=== PATIENT | male | born 1940 | race Two or more races ===

== ENCOUNTER → 2017-06-16 | Outpatient (CLI) | payer MEDICARE, OTHER ==
[~2017-06-16] MED LIST: ASPIRIN81 M2 PO; FISH OIL; MULTIVITAMIN; Z.0.CARVEDILOL6.25 M PO; Z.0.DIGOXIN125 MCG PO; Z.0.FUROSEMIDE40 MG PO; Z.0.GLIMEPIRIDE1 MG PO; Z.0.LIPITOR20 MG PO; Z.0.PLAVIX75 MG PO; Z.0.SPIRONOLACTONE25 PO; Z.0.TAMSULOSIN HCL0. PO; [UNRECOGNIZED DRUG - OTHER] PO
--- NOTE | 2017-06-16 09:35 | Diagnostic Imaging Report ---
PROCEDURE: X-RAY BARIUM ENEMA WITH AIR CONTRAST COMPARISON: None. INDICATIONS: CONSTIPATION Fluoroscopy time: 1.1 minutes Air kerma: 131.3 mGy TECHNIQUE: It Infrastructure Specialist film was obtained. Barium was introduced via a rectal tube in a retrograde fashion until contrast was noted to reach the cecum. Air was then introduced to fully inflate the colon. Multiple spot images as well as overhead and bilateral decubitus images were obtained. FINDINGS: The prosthetic aide radiograph shows a nonobstructive bowel gas pattern. Regional skeletal structures are intact. No abnormal calcification or organomegaly. Barium enema images showed a short segment of distal descending colon which is persistently narrowed throughout the examination. Otherwise no stricture, filling defect, or mass lesion. CONCLUSION: Short segment narrowing of the distal descending colon is concerning for an annular lesion given the persistence over the entirety of the examination. Direct visualization with colonoscopy is suggested. Dictated by: Wm Samano M.D. on 06/16/2017 at 9:34 Electronically approved by: Wm Samano M.D. on 06/16/2017 at 9:34
== END ==
LOC: DX 08:03
PROVIDERS: ATTEND Internal Medicine Gastroenterology
DX: K59.00 Constipation, unspecified (principal)
CPT/HCPCS: 74280

== ENCOUNTER → 2017-07-08 | Outpatient (CLI) | payer MEDICARE, OTHER ==
[~2017-07-08] MED LIST changes: +DIATRIZOATE MEGL/DIATRIZOA SOD 30 ML BTL PO ONE; +IOPAMIDOL 370 MG/ML 200 ML INFUS..BTL INJ ONE; +SODIUM CHLORIDE 0.9% 250ML 500 ML ONE; +SODIUM CHLORIDE 0.9% 50ML 50 ML ONE
[2017-07-08 16:59] LABS: CREATININE, SERUM 1.29 mg/dL (0.72-1.25)
--- NOTE | 2017-07-08 18:55 | Diagnostic Imaging Report ---
CORRECTION Corrected on: 07/14/2017; Dictated by: Severiano Pelayo D.O. Caution: Report not yet finalized and possibly incomplete! PROCEDURE: CT ABDOMEN AND PELVIS WITH CONTRAST TECHNIQUE: The abdomen and pelvis were scanned utilizing a multidetector helical scanner from the diaphragm to the lesser trochanter after the IV administration of 100 cc of Isovue 370 and the oral administration of Gastroview. Coronal and sagittal multiplanar reformations were obtained. DLP: 365.9 mGy-cm COMPARISON: Abdominal CT 08/28/2016, Barium Enema 06/16/2017 INDICATIONS: ABNORMAL BE FINDINGS: LOWER THORAX: Cardiomegaly with reflux of contrast into the IVC and hepatic veins suggesting right heart dysfunction. Partially visualized AICD lead in the right ventricle and median sternotomy wire. HEPATOBILIARY: No focal hepatic lesions. No biliary ductal dilatation. SPLEEN: No splenomegaly. PANCREAS: No focal masses or ductal dilatation. ADRENALS: No adrenal nodules. KIDNEYS/URETERS: No hydronephrosis, stones, or solid mass lesions. Left inferior pole 1.3 cm cyst. PELVIC ORGANS/BLADDER: Indentation of the prostate base may reflect prior TURP. PERITONEUM / RETROPERITONEUM: No free air. Increased small volume ascites. Some areas of the fluid in the pelvis measure slightly greater than simple fluid density which could reflect a complex fluid. LYMPH NODES: No lymphadenopathy. Increased size of the fluid attenuating lobulated and elongated structure (coronal image 55) anterior to the left psoas muscle which currently measures approximately 8.8 x 3.2 x 4.9 cm (previously 6.4 x 2.7 x 2.7 cm). VESSELS: Moderate scattered atherosclerotic disease including the celiac, superior mesenteric artery, and renal artery ostia. Noncalcified plaques again seen within the infrarenal abdominal aorta. GI TRACT: No distention or wall thickening. Descending colon is relatively underdistended containing a small amount of stool and similar in caliber throughout. No obvious finding to correspond with the narrowing in the distal descending colon on barium enema. 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 Appendicoliths in the distal aspect. No evidence of appendicitis. BONES AND SOFT TISSUES: Degenerative changes of the spine. IMPRESSION: 1. No obvious abnormality to correspond with the distal descending colonic narrowing on barium enema 06/16/2017. Recommend correlation with colon cancer screening. 2. Increased size of the fluid density structure anterior to left psoas muscle which may represent a lymphangioma. 3. 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 4. Increased small volume ascites. Some fluid in the pelvis measures slightly greater density than that of simple fluid which may reflect complex fluid. 5. Cardiomegaly with reflux of contrast into the IVC and hepatic veins suggestive of right heart dysfunction. Dictated by: Jan Gruber M.D. on 07/08/2017 at 18:56 Electronically approved by: Jan Gruber M.D. on 07/08/2017 at 18:56
== END ==
LOC: CT 15:45
PROVIDERS: ATTEND Internal Medicine Gastroenterology
DX: R94.8 Abnormal results of function studies of other organs and systems (principal)
CPT/HCPCS: 36415; 74177; 82565; 84520; J7050; Q9967

== ENCOUNTER → 2017-08-02 | Outpatient (CLI) | payer MEDICARE, OTHER ==
[~2017-08-02] MED LIST changes: -DIATRIZOATE MEGL/DIATRIZOA SOD 30 ML BTL PO ONE; -IOPAMIDOL 370 MG/ML 200 ML INFUS..BTL INJ ONE; -SODIUM CHLORIDE 0.9% 250ML 500 ML ONE; -SODIUM CHLORIDE 0.9% 50ML 50 ML ONE
--- NOTE | 2017-08-02 13:32 | Diagnostic Imaging Report ---
PROCEDURE: Frontal and lateral views of the chest. COMPARISON: Patients [facility], , CHEST 2 VIEWS, 01/07/2007, 11:52. INDICATIONS: COUGH FINDINGS: Lines/tubes: None. The lead left-sided cardiac pacemaker. Lungs: The lungs are mildly hyperinflated with increased AP diameter of the thorax.. There is no evidence of pneumonia or pulmonary edema. Pleura: There is no pleural effusion or pneumothorax. Heart and mediastinum: The cardiac silhouette is moderately enlarged. Mild prominence of the aortic arch with calcifications. Median sternotomy wires. Bones: No acute bony abnormality. IMPRESSION: 1. Cardiomegaly without acute decompensation. 2. Bilateral hyperinflation may represent mild COPD. Jordan Kamara M.D. Dictated by: Jordan Kamara M.D. on 08/02/2017 at 13:33 Electronically approved by: Jordan Kamara M.D. on 08/02/2017 at 13:33
== END ==
LOC: RAD 12:26
DX: R05 Cough (principal)
CPT/HCPCS: 71046

== ENCOUNTER → 2018-07-21 | Outpatient (CLI) | payer MEDICARE, OTHER ==
--- NOTE | 2018-07-21 15:50 | Diagnostic Imaging Report ---
Exam: Left hip 2 views History: Pain Comparison: None. Findings: No fracture or malalignment. Mild degenerative arthrosis of the left hip. No abnormal soft tissue calcification or soft tissue defect. Impression: No acute osseous abnormality Mild degenerative arthrosis of the left hip. Signed by: Dr. Anuj Griggs M.D. on 07/21/2018 3:47 PM
--- NOTE | 2018-07-21 15:52 | Diagnostic Imaging Report ---
EXAMINATION: RIBS UNILAT W/CXR INDICATION: Left rib pain. COMPARISON: None FINDINGS: TUBES and LINES: Left-sided AICD with leads overlying the right atrium and right ventricle. LUNGS: Lungs are well inflated. There is no evidence of pneumonia or pulmonary edema. PLEURA: No pleural effusion or pneumothorax. HEART AND MEDIASTINUM: The cardiomediastinal silhouette is moderately enlarged. Status post CABG. BONES AND SOFT TISSUES: No acute osseous abnormality. No evidence of displaced rib fracture on dedicated views. Status post median sternotomy. UPPER ABDOMEN: No free air under the diaphragm. IMPRESSION: No evidence of displaced rib fracture. Moderate cardiomegaly without pulmonary edema. Signed by: Dr. Andre Corea MD on 07/21/2018 3:49 PM
== END ==
LOC: RAD 14:06
DX: R07.81 Pleurodynia (principal); R07.89 Other chest pain; M25.552 Pain in left hip
CPT/HCPCS: 71101

== ENCOUNTER 2022-06-18 12:04 | Emergency (ER) | payer MEDICARE, OTHER ==
[~2022-06-18] VITALS: Ht 160 cm; Wt 65.8 kg
[2022-06-18] MEDS ORDERED: NAPROXEN250 MG PO (14:00)
== END 2022-06-18 14:25 | disposition home or self-care (01) ==
LOC: ER 12:16
DX: M25.512 Pain in left shoulder (principal); M54.2 Cervicalgia; I10 Essential (primary) hypertension; E11.9 Type 2 diabetes mellitus without complications; I50.9 Heart failure, unspecified; I48.91 Unspecified atrial fibrillation; I25.10 Atherosclerotic heart disease of native coronary artery without angina pectoris; E78.5 Hyperlipidemia, unspecified; K21.9 Gastro-esophageal reflux disease without esophagitis; Z95.1 Presence of aortocoronary bypass graft
CPT/HCPCS: 70450; 72125; 99283

== ENCOUNTER 2022-06-30 10:53 | Emergency (ER) | payer MEDICARE, OTHER ==
[~2022-06-30] VITALS: Ht 160 cm; Wt 65.8 kg
[~2022-06-30 10:53] MED LIST changes: +NAPROXEN250 MG PO
[2022-06-30] MEDS ORDERED: NAPROSYN500 MG PO (11:31)
== END 2022-06-30 11:47 | disposition home or self-care (01) ==
LOC: ER 11:00
DX: M25.512 Pain in left shoulder (principal); W18.39XA Other fall on same level, initial encounter; Y92.89 Other specified places as the place of occurrence of the external cause; I10 Essential (primary) hypertension; E11.9 Type 2 diabetes mellitus without complications; I50.9 Heart failure, unspecified; E78.5 Hyperlipidemia, unspecified; I48.91 Unspecified atrial fibrillation; K21.9 Gastro-esophageal reflux disease without esophagitis; I25.2 Old myocardial infarction; Z95.1 Presence of aortocoronary bypass graft
CPT/HCPCS: 99282

== ENCOUNTER 2022-08-25 12:13 | Emergency (ER) | payer MEDICARE, OTHER ==
[~2022-08-25] VITALS: Ht 160 cm; Wt 56.7 kg
[~2022-08-25 12:13] MED LIST changes: +NAPROSYN500 MG PO
[2022-08-25 12:30] VITALS: O2SAT 97
[2022-08-25] MEDS ORDERED: BACLOFEN10 MG PO (14:21)
== END 2022-08-25 14:45 | disposition home or self-care (01) ==
LOC: FSED 12:18
DX: S29.012A Strain of muscle and tendon of back wall of thorax, initial encounter (principal); R07.89 Other chest pain; I10 Essential (primary) hypertension; E11.9 Type 2 diabetes mellitus without complications; I50.9 Heart failure, unspecified; I48.91 Unspecified atrial fibrillation; I25.10 Atherosclerotic heart disease of native coronary artery without angina pectoris; E78.5 Hyperlipidemia, unspecified; K21.9 Gastro-esophageal reflux disease without esophagitis; I25.2 Old myocardial infarction
CPT/HCPCS: 71101; 72070; 99283

== ENCOUNTER 2022-08-30 14:33 | Emergency (ER) | payer MEDICARE, OTHER ==
[~2022-08-30] VITALS: Ht 160 cm; Wt 56.7 kg
[~2022-08-30 14:33] MED LIST changes: +BACLOFEN10 MG PO
[2022-08-30 15:40] VITALS: O2SAT 99
[2022-08-30] MEDS ORDERED: LIDOCAINE 4% PATCH TP STA (16:14)
[2022-08-30] MEDS ORDERED: ACETAMINOPHEN 325 MG TAB PO ONE (16:15)
== END 2022-08-30 16:30 | disposition home or self-care (01) ==
LOC: ER 15:28
DX: M94.0 Chondrocostal junction syndrome [Tietze] (principal); I10 Essential (primary) hypertension; E11.9 Type 2 diabetes mellitus without complications; I50.9 Heart failure, unspecified; I48.91 Unspecified atrial fibrillation; E78.5 Hyperlipidemia, unspecified; I25.10 Atherosclerotic heart disease of native coronary artery without angina pectoris; K21.9 Gastro-esophageal reflux disease without esophagitis; Z95.1 Presence of aortocoronary bypass graft
CPT/HCPCS: 99282

== ENCOUNTER 2022-09-18 13:37 | Observation (INO) | payer MEDICARE, OTHER ==
[~2022-09-18] VITALS: Ht 160 cm; Wt 56.7 kg
[2022-09-18 14:39] LABS: BASOPHILS # (AUTO) 0.1 (0.0-0.1); BASOPHILS % 1.1 % (0.0-1.0); EOSINOPHILS # (AUTO) 0.4 (0.0-0.4); EOSINOPHILS % 6.1 % (0.0-6.0); HEMATOCRIT 34.8 % (38.2-49.6); HEMOGLOBIN 11.7 g/dL (14.0-18.0); LYMPHOCYTES % 28.3 % (18.0-39.1); MEAN CORPUSCULAR HEMOGLOBIN 31.8 pg (28-32); MEAN CORPUSCULAR HGB CONC 33.6 g/dL (31-35); MEAN CORPUSCULAR VOLUME 94.6 fL (81-99); MONOCYTES # (AUTO) 0.7 (0.2-0.8); MONOCYTES % 9.4 % (4.4-11.3); NEUTROPHILS # (AUTO) 3.9 (2.1-6.9); NEUTROPHILS % 54.5 % (38.7-80.0); PLATELET COUNT 160 x10e3/uL (140-360); RED BLOOD COUNT 3.68 x10e6/uL (4.3-5.7); RED CELL DISTRIBUTION WIDTH 13.3 % (11.7-14.4)
[2022-09-18 14:51] LABS: ANION GAP 14.9 mmol/L (8-16); CALCIUM 9.7 mg/dL (8.4-10.2); CREATININE, SERUM 1.59 mg/dL (0.72-1.25); POTASSIUM 3.9 mmol/L (3.5-5.1)
[2022-09-18 15:07] LABS: CLARITY,URINE SL CLOUDY (CLEAR); COLOR,URINE YELLOW (YELLOW); KETONES,URINE TRACE (NEGATIVE); LEUKOCYTE ESTERASE ,URINE TRACE (NEGATIVE); NITRITE,URINE NEGATIVE (NEGATIVE); PROTEIN,URINE DIPSTICK 1+ (NEGATIVE); URINE UROBILINOGEN 0.2 mg/dL (0.2 - 1)
[2022-09-18 15:20] LABS: BACTERIA,URINE FEW /HPF; EPITHELIAL CELLS,URINE FEW /LPF; RBC,URINE 0-5 /HPF (0-5)
[2022-09-18] MEDS ORDERED: DEXTROSE 50% SYRINGE 50 ML IV PRN (17:15)
[2022-09-18] MEDS: INSULIN LISPRO 100 UNIT/1 ML 3ML VIAL SQ SCH (22:44)
[2022-09-18] MEDS ORDERED: Morphine 2mg Syringe 2 MG/ML SYR IV PRN (23:00)
[2022-09-19 08:12] VITALS: BP 124/61; PULSE 69; RESP 18; TEMP 98.6; O2SAT 100
[2022-09-19 08:40] VITALS: BP 124/61; PULSE 69; RESP 18; TEMP 98.6; O2SAT 100
[2022-09-19] MEDS ORDERED: FUROSEMIDE 40 MG TAB PO SCH (09:00)
[2022-09-19] MEDS ORDERED: SPIRONOLACTONE 25 MG TAB PO SCH (09:00)
[2022-09-19] MEDS ORDERED: GABAPENTIN 300 MG CAP PO SCH (09:00)
[2022-09-19] MEDS ORDERED: FINASTERIDE 5 MG TAB PO SCH (09:00)
[2022-09-19] MEDS ORDERED: POLYETHYLENE GLYCOL 3350 17 GM PACK PO SCH (09:00)
[2022-09-19] MEDS ORDERED: PANTOPRAZOLE SOD 40 MG TABEC PO SCH (09:00)
[2022-09-19] MEDS ORDERED: TAMSULOSIN HCL 0.4 MG CAP PO SCH (09:00)
[2022-09-19] MEDS ORDERED: CARVEDILOL 3.125 MG TAB PO SCH (09:00)
[2022-09-19] MEDS ORDERED: SODIUM CHLORIDE 0.9% 250ML 250 ML ONE (09:03)
[2022-09-19] MEDS: INSULIN LISPRO 100 UNIT/1 ML 3ML VIAL SQ SCH ×2 (09:14→12:00)
[2022-09-19 09:40] VITALS: BP 124/61; PULSE 69; RESP 18; TEMP 98.6; O2SAT 100
[2022-09-19 10:31] LABS: BASOPHILS # (AUTO) 0.1 (0.0-0.1); EOSINOPHILS # (AUTO) 0.4 (0.0-0.4); EOSINOPHILS % 5.5 % (0.0-6.0); HEMOGLOBIN 11.7 g/dL (14.0-18.0); LYMPHOCYTES # (AUTO) 1.6 (1.0-3.2); LYMPHOCYTES % 21.1 % (18.0-39.1); MEAN CORPUSCULAR HEMOGLOBIN 31.5 pg (28-32); MEAN CORPUSCULAR HGB CONC 32.5 g/dL (31-35); MEAN CORPUSCULAR VOLUME 96.8 fL (81-99); MONOCYTES # (AUTO) 0.6 (0.2-0.8); MONOCYTES % 7.5 % (4.4-11.3); NEUTROPHILS # (AUTO) 4.9 (2.1-6.9); NEUTROPHILS % 64.4 % (38.7-80.0); PLATELET COUNT 148 x10e3/uL (140-360); RED BLOOD COUNT 3.72 x10e6/uL (4.3-5.7); RED CELL DISTRIBUTION WIDTH 13.5 % (11.7-14.4)
[2022-09-19 10:54] LABS: ANION GAP 13.5 mmol/L (8-16); CALCIUM 9.8 mg/dL (8.4-10.2); CREATININE, SERUM 1.37 mg/dL (0.72-1.25); POTASSIUM 4.5 mmol/L (3.5-5.1)
[2022-09-19 12:20] VITALS: BP 118/58; PULSE 63; RESP 20; TEMP 97.9; O2SAT 100
[2022-09-19] MEDS ORDERED: FINASTERIDE5 MG PO (12:58)
[2022-09-19] MEDS ORDERED: GABAPENTIN300 MG PO (12:58)
[2022-09-19] MEDS ORDERED: MACROBID 100 M100 MG PO (12:58)
[2022-09-19] MEDS ORDERED: HYDROCODON-ACE1 EA11 PO (12:58)
[2022-09-19 15:41] VITALS: BP 130/84; PULSE 60; RESP 20; TEMP 98.1; O2SAT 100
[2022-09-19] MEDS ORDERED: ATORVASTATIN 40 MG TAB PO SCH (21:00)
== END 2022-09-19 16:12 | disposition home or self-care (01) ==
LOC: ER 13:47 → ERHOLD 17:12 → MED/SURG 09-19 07:45
PROVIDERS: ADMIT Internal Medicine; ATTEND Internal Medicine
DX: N39.0 Urinary tract infection, site not specified (principal); R10.31 Right lower quadrant pain; K40.90 Unilateral inguinal hernia, without obstruction or gangrene, not specified as recurrent; I25.10 Atherosclerotic heart disease of native coronary artery without angina pectoris; Z95.1 Presence of aortocoronary bypass graft; J96.11 Chronic respiratory failure with hypoxia; I13.0 Hypertensive heart and chronic kidney disease with heart failure and stage 1 through stage 4 chronic kidney disease, or unspecified chronic kidney disease; E11.22 Type 2 diabetes mellitus with diabetic chronic kidney disease; N18.4 Chronic kidney disease, stage 4 (severe); I50.9 Heart failure, unspecified; N40.0 Benign prostatic hyperplasia without lower urinary tract symptoms; K59.00 Constipation, unspecified; K21.9 Gastro-esophageal reflux disease without esophagitis; Z95.810 Presence of automatic (implantable) cardiac defibrillator; E78.5 Hyperlipidemia, unspecified; I48.91 Unspecified atrial fibrillation; L40.9 Psoriasis, unspecified; M40.209 Unspecified kyphosis, site unspecified; Z79.4 Long term (current) use of insulin
CPT/HCPCS: 0223U; 36415 ×2; 74176; 80048 ×2; 81001; 82948 ×2; 85025 ×2; 87086; 94760; 99285; G0378 ×2; J0696 ×2; J7050; S0164

== ENCOUNTER → 2022-09-22 | Outpatient (CLI) | payer MEDICARE, OTHER ==
[~2022-09-22] MED LIST changes: +FINASTERIDE5 MG PO; +GABAPENTIN300 MG PO; +HYDROCODON-ACE1 EA11 PO; +MACROBID 100 M100 MG PO
== END ==
LOC: RAD 12:19
PROVIDERS: ATTEND Internal Medicine
DX: R06.02 Shortness of breath (principal)
CPT/HCPCS: 71046

== ENCOUNTER 2024-08-28 16:53 | Inpatient (IN) | payer MEDICARE ==
[~2024-08-28] VITALS: Ht 162.6 cm; Wt 64.4 kg
[2024-08-28] VITALS (16 sets, daily range): BP systolic 81–98; BP diastolic 54–72; PULSE 113–119; RESP 7–16; TEMP 97.6–98.2; O2SAT 93–100
[~2024-08-28 16:53] MED LIST changes: +AMIODARONE HCL200 MG PO; +ASPIRIN81 MG PO; +CLOTRIMAZOLE30 ML EACH EAR; +CORTISPORIN-TC10 M1 LEFT EAR; +DIFLUCAN100 MG PO; -FISH OIL; +FISH OIL PO; +HUMULIN N100 UNITS/ SC; +LASIX20 MG PO; +LEVEMIR100 UNIT/1 SC; +LEVOCETIRIZINE D5 MG PO; +MECLIZINE HCL12.5 MG PO; +METOLAZONE5 MG PO; +MIRALAX17 GM PO; +MYRBETRIQ25 MG PO; +PANTOPRAZOLE SO40 MG PO; +TOPICORT100 ML TOP
[2024-08-28] MEDS: SODIUM CHLORIDE 0.9% 1000ML 1,000 ML IV STA (17:37)
[2024-08-28 17:40] LABS: BASOPHILS # (AUTO) 0.1 (0.0-0.1); BASOPHILS % 0.8 % (0.0-1.0); EOSINOPHILS # (AUTO) 0.3 (0.0-0.4); EOSINOPHILS % 3.4 % (0.0-6.0); HEMATOCRIT 34.1 % (38.2-49.6); HEMOGLOBIN 11.3 g/dL (14.0-18.0); LYMPHOCYTES # (AUTO) 1.3 (1.0-3.2); LYMPHOCYTES % 18.2 % (18.0-39.1); MEAN CORPUSCULAR HEMOGLOBIN 31.9 pg (28-32); MEAN CORPUSCULAR HGB CONC 33.1 g/dL (31-35); MEAN CORPUSCULAR VOLUME 96.3 fL (81-99); MONOCYTES # (AUTO) 0.8 (0.2-0.8); MONOCYTES % 10.8 % (4.4-11.3); NEUTROPHILS # (AUTO) 4.8 (2.1-6.9); NEUTROPHILS % 66.3 % (38.7-80.0); PLATELET COUNT 181 x10e3/uL (140-360); RED BLOOD COUNT 3.54 x10e6/uL (4.3-5.7); RED CELL DISTRIBUTION WIDTH 18.5 % (11.7-14.4)
[2024-08-28] MEDS: ACETAMINOPHEN 325 MG TAB PO STA (17:45)
[2024-08-28] MEDS ORDERED: Morphine 4mg INJECTION 4 MG/ML INJ IV PRN (17:45)
[2024-08-28] MEDS ORDERED: ONDANSETRON HCL INJ 2MG/ML 2ML 2 MG/ML VIAL IV PRN (17:45)
[2024-08-28] MEDS: ONDANSETRON HCL INJ 2MG/ML 2ML 2 MG/ML VIAL IV STA (17:50)
[2024-08-28] MEDS: Morphine 4mg INJECTION 4 MG/ML INJ IV STA (17:50)
[2024-08-28 17:55] LABS: ALBUMIN 3.1 g/dL (3.5-5.0); ALBUMIN/GLOBULIN RATIO 0.8 (0.8-2.0); ANION GAP 19.5 mmol/L (8-16); BILIRUBIN,TOTAL 3.5 mg/dL (0.2-1.2); CALCIUM 8.7 mg/dL (8.4-10.2); CREATININE, SERUM 2.5 mg/dL (0.72-1.25); TOTAL PROTEIN 7.2 g/dL (6.5-8.1)
[2024-08-28 17:59] LABS: POTASSIUM 5.5 mmol/L (3.5-5.1)
[2024-08-28 18:03] LABS: TROPONIN I 2.091 ng/mL (0-0.300)
[2024-08-28] MEDS: ALBUTEROL SULF 0.083% NEB SOLN 3 ML NEB NEB STA (18:03)
[2024-08-28] MEDS: SODIUM CHLORIDE 0.9% 1000ML 1,000 ML IV SCH (18:30)
[2024-08-28] MEDS: SODIUM BICARBONATE 8.4% INJ 50 ML SYR IV STA (18:31)
[2024-08-28] MEDS: DEXTROSE 50% SYRINGE 50 ML IV ONE (18:32)
[2024-08-28] MEDS: CALCIUM GLUC 1 G/50 ML NACL 50 ML IV ONE (18:32)
[2024-08-28] MEDS: INSULIN REGULAR, HUMAN 100 UNIT/1 ML IV ONE (18:34)
[2024-08-28] MEDS ORDERED: DEXTROSE 50% SYRINGE 50 ML IV PRN (19:00)
[2024-08-28] MEDS ORDERED: ALBUTEROL SULF 0.083% NEB SOLN 3 ML NEB NEB PRN (19:00)
[2024-08-28] MEDS ORDERED: HYDRALAZINE HCL 20 MG/ML VIAL IV PRN (19:00)
[2024-08-28] MEDS ORDERED: ACETAMINOPHEN 325 MG TAB PO PRN (19:00)
[2024-08-28 20:31] LABS: INR 1.32; PROTHROMBIN TIME 17.5 seconds (11.9-14.5)
[2024-08-28 20:32] LABS: PARTIAL THROMBOPLASTIN TIME 37.1 seconds (23.8-35.5)
[2024-08-28] MEDS: FUROSEMIDE INJ 10 MG/ML 10 ML VIAL IV ONE (21:18)
[2024-08-28] MEDS: HEPARIN SOD (PORCINE) 5,000 UNIT/ML VIAL SC SCH (22:13)
[2024-08-28] MEDS: INSULIN REGULAR, HUMAN 100 UNIT/1 ML SQ SCH (22:13)
[2024-08-29] VITALS (102 sets, daily range): BP systolic 72–126; BP diastolic 53–79; PULSE 42–127; RESP 9–25; TEMP 94.3–97.9; O2SAT 95–100
[2024-08-29 01:09] LABS: TROPONIN I 1.954 ng/mL (0-0.300)
[2024-08-29] MEDS: NOREPINEPHRINE 8 MG/D5W 250 ML 250 ML IV SCH (01:33)
[2024-08-29] MEDS: Morphine 2mg Syringe 2 MG/ML SYR IV PRN (01:48)
[2024-08-29 07:18] LABS: BASOPHILS % 0.4 % (0.0-1.0); EOSINOPHILS # (AUTO) 0.1 (0.0-0.4); EOSINOPHILS % 1.3 % (0.0-6.0); HEMOGLOBIN 11.7 g/dL (14.0-18.0); LYMPHOCYTES # (AUTO) 1.2 (1.0-3.2); LYMPHOCYTES % 13.1 % (18.0-39.1); MEAN CORPUSCULAR HEMOGLOBIN 31.1 pg (28-32); MEAN CORPUSCULAR HGB CONC 31.6 g/dL (31-35); MEAN CORPUSCULAR VOLUME 98.4 fL (81-99); MONOCYTES # (AUTO) 0.9 (0.2-0.8); MONOCYTES % 9.6 % (4.4-11.3); NEUTROPHILS # (AUTO) 6.8 (2.1-6.9); PLATELET COUNT 210 x10e3/uL (140-360); RED BLOOD COUNT 3.76 x10e6/uL (4.3-5.7); RED CELL DISTRIBUTION WIDTH 18.6 % (11.7-14.4)
[2024-08-29 07:55] LABS: ALBUMIN/GLOBULIN RATIO 0.7 (0.8-2.0); ANION GAP 18.7 mmol/L (8-16); BILIRUBIN,TOTAL 4.4 mg/dL (0.2-1.2); CREATININE, SERUM 2.71 mg/dL (0.72-1.25); TOTAL PROTEIN 7.3 g/dL (6.5-8.1)
[2024-08-29] MEDS ORDERED: MIDODRINE HCL 5 MG TABLET PO SCH (08:00)
[2024-08-29 08:01] LABS: POTASSIUM 5.7 mmol/L (3.5-5.1)
[2024-08-29 08:21] LABS: TROPONIN I 1.899 ng/mL (0-0.300)
[2024-08-29] MEDS: MIDODRINE HCL 5 MG TABLET PO SCH (08:22)
[2024-08-29] MEDS: ALBUMIN 25% 25GM 100ML 0.25 GM/ML BTL IV SCH (08:22)
[2024-08-29] MEDS: DEXTROSE 50% SYRINGE 50 ML IV ONE (08:23)
[2024-08-29] MEDS: INSULIN REGULAR, HUMAN 100 UNIT/1 ML IV ONE (08:24)
[2024-08-29] MEDS: SODIUM BICARBONATE 8.4% INJ 50 ML SYR IV ONE (08:25)
[2024-08-29] MEDS: FUROSEMIDE INJ 10 MG/ML 4 ML VIAL IV ONE (08:28)
[2024-08-29] MEDS: FUROSEMIDE INJ 10 MG/ML 4 ML VIAL ONE (08:43)
[2024-08-29] MEDS: RIFAXIMIN 550 MG TABLET PO SCH (08:50)
[2024-08-29] MEDS: MULTIVITAMINS/MINERALS TAB PO SCH (08:50)
[2024-08-29] MEDS: ASPIRIN 81 MG CHEW TAB PO SCH (08:50)
[2024-08-29] MEDS: FOLIC ACID 1 MG TAB PO SCH (08:50)
[2024-08-29] MEDS: THIAMINE HCL 100 MG TAB PO SCH (08:51)
[2024-08-29] MEDS: SODIUM CHLORIDE 0.9% 1000ML 1,000 ML IV SCH (10:46)
[2024-08-29 12:09] LABS: COLOR,URINE AMBER (YELLOW)
[2024-08-29 12:26] LABS: BILIRUBIN,URINE MODERATE (NEGATIVE); CLARITY,URINE CLOUDY (CLEAR); GLUCOSE, URINE NEGATIVE (NEGATIVE); KETONES,URINE TRACE (NEGATIVE); LEUKOCYTE ESTERASE ,URINE SMALL (NEGATIVE); NITRITE,URINE NEGATIVE (NEGATIVE); PH,URINE 5.5 (5 - 7); PROTEIN,URINE DIPSTICK >=300 (NEGATIVE); URINE UROBILINOGEN 4 mg/dL (0.2 - 1)
[2024-08-29 12:40] LABS: AMORPHOUS SEDIMENT,URINE FEW; BACTERIA,URINE MODERATE /HPF; EPITHELIAL CELLS,URINE FEW /LPF; RBC,URINE >50 /HPF (0-5)
[2024-08-29 13:30] LABS: EOSINOPHIL SMEAR,URINE NONE SEEN (NONE SEEN)
[2024-08-29] MEDS: OLANZAPINE 5 MG TAB PO PRN (13:45)
[2024-08-29] MEDS: ATORVASTATIN 20 MG TAB PO SCH (20:11)
[2024-08-29] MEDS: DEXTROSE 5% IV SCH (21:16)
[2024-08-29] MEDS: VASOPRESSIN IV SCH (21:16)
[2024-08-29] MEDS: LACTULOSE SYRUP 20 GM/30 ML UDC PO PRN (23:58)
[2024-08-30] VITALS (104 sets, daily range): BP systolic 61–134; BP diastolic 21–88; PULSE 75–131; RESP 10–25; TEMP 97–97.6; O2SAT 89–100
[2024-08-30] MEDS: METRONIDAZOLE 500MG/NS 100ML 100 ML IV STA (03:03)
[2024-08-30] MEDS: METRONIDAZOLE 500MG/NS 100ML 100 ML IV SCH (06:10)
[2024-08-30] MEDS: LACTULOSE SYRUP 20 GM/30 ML UDC PO SCH ×2 (06:10→21:29)
[2024-08-30 06:35] LABS: BASOPHILS % 0.5 % (0.0-1.0); EOSINOPHILS # (AUTO) 0.3 (0.0-0.4); EOSINOPHILS % 3.1 % (0.0-6.0); HEMATOCRIT 34.7 % (38.2-49.6); HEMOGLOBIN 10.8 g/dL (14.0-18.0); LYMPHOCYTES # (AUTO) 1.4 (1.0-3.2); LYMPHOCYTES % 16.2 % (18.0-39.1); MEAN CORPUSCULAR HEMOGLOBIN 31.1 pg (28-32); MEAN CORPUSCULAR HGB CONC 31.1 g/dL (31-35); MONOCYTES # (AUTO) 0.8 (0.2-0.8); NEUTROPHILS # (AUTO) 6.1 (2.1-6.9); NEUTROPHILS % 70.7 % (38.7-80.0); PLATELET COUNT 180 x10e3/uL (140-360); RED BLOOD COUNT 3.47 x10e6/uL (4.3-5.7); RED CELL DISTRIBUTION WIDTH 18.8 % (11.7-14.4)
[2024-08-30 06:59] LABS: ALBUMIN 3.5 g/dL (3.5-5.0); BILIRUBIN,TOTAL 4.1 mg/dL (0.2-1.2); CALCIUM 9.3 mg/dL (8.4-10.2); CREATININE, SERUM 3.26 mg/dL (0.72-1.25); MAGNESIUM 2.1 MG/DL (1.3-2.1)
[2024-08-30] MEDS: NOREPINEPHRINE 8 MG/D5W 250 ML 250 ML IV SCH (07:54)
[2024-08-30] MEDS: BUMETANIDE INJ 0.25MG/ML 4ML VIAL IV ONE (07:55)
[2024-08-30] MEDS: FAMOTIDINE 20 MG/2 ML VIAL IV SCH (08:07)
[2024-08-30] MEDS: TAMSULOSIN HCL 0.4 MG CAP PO SCH (10:03)
[2024-08-30 15:24] LABS: BODY FLUID TYPE PERITONEAL
[2024-08-30 15:25] LABS: BODY FLUID COLOR YELLOW
[2024-08-30 16:29] LABS: ANION GAP 23.2 mmol/L (8-16); CALCIUM 8.9 mg/dL (8.4-10.2); CREATININE, SERUM 3.5 mg/dL (0.72-1.25); POTASSIUM 5.2 mmol/L (3.5-5.1)
[2024-08-30 16:36] LABS: BODY FLUID APPEARANCE SL.CLOUDY; RBC,BODY FLUID 4000 cells/uL; WBC,BODY FLUID 207 cells/uL
[2024-08-30] MEDS: OCTREOTIDE ACETATE 500 MCG in SODIUM CHLORIDE 0.9% 250ML 249 ML IV SCH (17:00)
[2024-08-30] MEDS ORDERED: VASOPRESSIN 60 UNIT in DEXTROSE 5% 50ML 57 ML IV ONE (17:15)
[2024-08-30] MEDS: ALBUMIN 25% 25GM 100ML 0.25 GM/ML BTL IV SCH ×2 (17:35→21:28)
[2024-08-30] MEDS: SODIUM BICARBONATE 8.4% SYRING 50 ML in SODIUM CHLORIDE 0.45% 1,000 ML IV SCH (17:40)
[2024-08-30 18:03] LABS: ABG HCO3 17 mmol/L (22-26); ABG PCO2 32 mmHg (35-45); ABG PH 7.33 (7.35-7.45); ABG PO2 132 mmHg (80-105); ABG TCO2 18
[2024-08-30 18:21] LABS: LYMPHOCYTES,BODY FLUID 20 %; MONO/MACROPHG,BODY FLUID 47 %; NEUTROPHILS,BODY FLUID 25 %; OTHER CELLS,BODY FLUID 8 %; TOTAL CELLS COUNTED (DIFF) 100
[2024-08-30] MEDS: OCTREOTIDE ACETATE 0.1 MG/ML 100MCG AMP SC SCH (21:29)
[2024-08-31] VITALS (86 sets, daily range): BP systolic 65–152; BP diastolic 38–133; PULSE 32–121; RESP 9–23; TEMP 96.7–97.5; O2SAT 90–100
[2024-08-31 06:56] LABS: BASOPHILS # (AUTO) 0.1 (0.0-0.1); BASOPHILS % 0.8 % (0.0-1.0); EOSINOPHILS # (AUTO) 0.1 (0.0-0.4); EOSINOPHILS % 0.9 % (0.0-6.0); HEMOGLOBIN 11.3 g/dL (14.0-18.0); LYMPHOCYTES # (AUTO) 1.2 (1.0-3.2); LYMPHOCYTES % 14.1 % (18.0-39.1); MEAN CORPUSCULAR HEMOGLOBIN 32.5 pg (28-32); MEAN CORPUSCULAR HGB CONC 32.3 g/dL (31-35); MEAN CORPUSCULAR VOLUME 100.6 fL (81-99); MONOCYTES # (AUTO) 0.9 (0.2-0.8); MONOCYTES % 10.1 % (4.4-11.3); NEUTROPHILS # (AUTO) 6.2 (2.1-6.9); NEUTROPHILS % 73.5 % (38.7-80.0); PLATELET COUNT 171 x10e3/uL (140-360); RED BLOOD COUNT 3.48 x10e6/uL (4.3-5.7); RED CELL DISTRIBUTION WIDTH 19.7 % (11.7-14.4); WHITE BLOOD COUNT 8.45 x10e3/uL (4.8-10.8)
[2024-08-31 07:31] LABS: ALBUMIN 3.8 g/dL (3.5-5.0); ALBUMIN/GLOBULIN RATIO 1.2 (0.8-2.0); ANION GAP 24.6 mmol/L (8-16); BILIRUBIN,TOTAL 3.9 mg/dL (0.2-1.2); CALCIUM 8.7 mg/dL (8.4-10.2); CREATININE, SERUM 4.14 mg/dL (0.72-1.25); TOTAL PROTEIN 7.1 g/dL (6.5-8.1)
[2024-08-31 07:43] LABS: POTASSIUM 5.6 mmol/L (3.5-5.1)
[2024-08-31] MEDS: MUPIROCIN 2% OINT 22 GM TUBE TOP SCH (08:19)
[2024-08-31 10:45] LABS: HEPATITIS B CORE IGM (P) Negative; HEPATITIS B SURFACE AG (P) Negative
[2024-08-31 10:46] LABS: HEPATITIS A ANTIBODY IGM (P) Negative; HEPATITIS C ANTIBODY Non Reactive
[2024-08-31 10:48] LABS: HEPATITIS B CORE AB TOTAL Positive
[2024-08-31] MEDS: SODIUM BICARBONATE 8.4% VIAL 50 ML in SODIUM CHLORIDE 0.45% 1,000 ML IV SCH (11:57)
[2024-08-31] MEDS: HEPARIN SOD (PORCINE) 1000 UNIT/ML SDV ONE (14:51)
[2024-08-31] MEDS: VASOPRESSIN 60 UNIT in DEXTROSE 5% 50ML 57 ML IV SCH (16:58)
[2024-08-31] MEDS ORDERED: HEPARIN SOD (PORCINE) 1000 UNIT/ML SDV IV PRN (19:45)
[2024-08-31] MEDS ORDERED: SODIUM CHLORIDE 0.9% 1000ML 2,000 ML IV PRN (19:45)
[2024-08-31] MEDS ORDERED: ALBUMIN 25% 12.5GM 0.25 GM/ML BTL IV PRN (19:45)
[2024-08-31] MEDS: MANNITOL 25% 12.5GM/50 ML VIAL IV PRN (20:18)
[2024-08-31] MEDS: ALBUMIN 25% 12.5GM 0.25 GM/ML BTL IV PRN (20:57)
[2024-08-31 23:05] LABS: TROPONIN I 1.134 ng/mL (0-0.300)
[2024-09-01] VITALS (61 sets, daily range): BP systolic 69–120; BP diastolic 28–88; PULSE 35–129; RESP 12–26; TEMP 94.9–97.2; O2SAT 93–100
[2024-09-01 06:42] LABS: BASOPHILS # (AUTO) 0.1 (0.0-0.1); EOSINOPHILS # (AUTO) 0.2 (0.0-0.4); HEMATOCRIT 31.5 % (38.2-49.6); HEMOGLOBIN 10.6 g/dL (14.0-18.0); LYMPHOCYTES % 13.3 % (18.0-39.1); MEAN CORPUSCULAR HEMOGLOBIN 32.2 pg (28-32); MEAN CORPUSCULAR HGB CONC 33.7 g/dL (31-35); MEAN CORPUSCULAR VOLUME 95.7 fL (81-99); MONOCYTES % 12.9 % (4.4-11.3); NEUTROPHILS # (AUTO) 5.2 (2.1-6.9); NEUTROPHILS % 70.3 % (38.7-80.0); PLATELET COUNT 195 x10e3/uL (140-360); RED BLOOD COUNT 3.29 x10e6/uL (4.3-5.7); RED CELL DISTRIBUTION WIDTH 19.5 % (11.7-14.4); WHITE BLOOD COUNT 7.36 x10e3/uL (4.8-10.8)
[2024-09-01 07:06] LABS: ALBUMIN 4.1 g/dL (3.5-5.0); ALBUMIN/GLOBULIN RATIO 1.8 (0.8-2.0); ANION GAP 17.7 mmol/L (8-16); BILIRUBIN,TOTAL 3.4 mg/dL (0.2-1.2); CALCIUM 8.4 mg/dL (8.4-10.2); CREATININE, SERUM 3.98 mg/dL (0.72-1.25); POTASSIUM 3.7 mmol/L (3.5-5.1); TOTAL PROTEIN 6.4 g/dL (6.5-8.1)
[2024-09-01 07:15] LABS: CALCIUM IONIZED 1.1 mmol/L (1.09-1.30)
[2024-09-01 07:22] LABS: MAGNESIUM 2.1 MG/DL (1.3-2.1); PHOSPHORUS 6.4 MG/DL (2.3-4.7)
[2024-09-01] MEDS: OLANZAPINE 5 MG TAB PO PRN (11:05)
[2024-09-01 12:54] LABS: ABG HCO3 25 mmol/L (22-26); ABG PCO2 51 mmHg (35-45); ABG PH 7.29 (7.35-7.45); ABG PO2 52 mmHg (80-105); ABG TCO2 26
[2024-09-01] MEDS: NOREPINEPHRINE 8 MG/D5W 250 ML 250 ML IV SCH (12:56)
[2024-09-01] MEDS: GUAIFENESIN/DEXTROMETHORPHAN LIQD 5 ML UDC PO PRN (16:06)
[2024-09-01] MEDS: SODIUM BICARBONATE 8.4% SYRING 50 ML in SODIUM CHLORIDE 0.45% 1,000 ML IV SCH (16:08)
[2024-09-01] MEDS: FUROSEMIDE INJ 10 MG/ML 4 ML VIAL IV ONE (19:01)
[2024-09-01] MEDS: LACTATED RINGER'S 1,000 ML INJ SCH (19:01)
[2024-09-02] VITALS (82 sets, daily range): BP systolic 72–119; BP diastolic 47–87; PULSE 91–130; RESP 13–25; TEMP 97.5–98; O2SAT 93–100
[2024-09-02 07:22] LABS: ANION GAP 19.8 mmol/L (8-16); CALCIUM 8.8 mg/dL (8.4-10.2); CREATININE, SERUM 4.58 mg/dL (0.72-1.25); POTASSIUM 3.8 mmol/L (3.5-5.1)
[2024-09-02] MEDS: AMIODARONE HCL 200 MG TAB PO SCH (16:53)
[2024-09-03] VITALS (82 sets, daily range): BP systolic 76–135; BP diastolic 52–112; PULSE 25–129; RESP 12–25; TEMP 95.7–98; O2SAT 89–100
[2024-09-03 06:43] LABS: BASOPHILS % 0.7 % (0.0-1.0); EOSINOPHILS # (AUTO) 0.2 (0.0-0.4); EOSINOPHILS % 2.8 % (0.0-6.0); HEMATOCRIT 30.2 % (38.2-49.6); LYMPHOCYTES # (AUTO) 0.8 (1.0-3.2); LYMPHOCYTES % 15.5 % (18.0-39.1); MEAN CORPUSCULAR HEMOGLOBIN 32.2 pg (28-32); MEAN CORPUSCULAR HGB CONC 33.1 g/dL (31-35); MEAN CORPUSCULAR VOLUME 97.1 fL (81-99); MONOCYTES # (AUTO) 0.7 (0.2-0.8); MONOCYTES % 13.4 % (4.4-11.3); NEUTROPHILS # (AUTO) 3.6 (2.1-6.9); NEUTROPHILS % 67.4 % (38.7-80.0); PLATELET COUNT 141 x10e3/uL (140-360); RED BLOOD COUNT 3.11 x10e6/uL (4.3-5.7); RED CELL DISTRIBUTION WIDTH 20.3 % (11.7-14.4); WHITE BLOOD COUNT 5.37 x10e3/uL (4.8-10.8)
[2024-09-03 07:00] LABS: ALBUMIN 4.5 g/dL (3.5-5.0); ALBUMIN/GLOBULIN RATIO 2.1 (0.8-2.0); ANION GAP 21.8 mmol/L (8-16); BILIRUBIN,TOTAL 3.5 mg/dL (0.2-1.2); CALCIUM 9.2 mg/dL (8.4-10.2); CREATININE, SERUM 5.17 mg/dL (0.72-1.25); POTASSIUM 3.8 mmol/L (3.5-5.1); TOTAL PROTEIN 6.6 g/dL (6.5-8.1)
[2024-09-04] VITALS (53 sets, daily range): BP systolic 88–132; BP diastolic 57–111; PULSE 32–125; RESP 14–25; TEMP 97.4–98; O2SAT 94–100
[2024-09-04 06:55] LABS: BASOPHILS # (AUTO) 0.1 (0.0-0.1); BASOPHILS % 1.1 % (0.0-1.0); EOSINOPHILS # (AUTO) 0.2 (0.0-0.4); EOSINOPHILS % 2.5 % (0.0-6.0); HEMATOCRIT 31.6 % (38.2-49.6); HEMOGLOBIN 10.3 g/dL (14.0-18.0); LYMPHOCYTES # (AUTO) 0.8 (1.0-3.2); LYMPHOCYTES % 12.7 % (18.0-39.1); MEAN CORPUSCULAR HEMOGLOBIN 31.5 pg (28-32); MEAN CORPUSCULAR HGB CONC 32.6 g/dL (31-35); MEAN CORPUSCULAR VOLUME 96.6 fL (81-99); MONOCYTES # (AUTO) 0.9 (0.2-0.8); MONOCYTES % 13.8 % (4.4-11.3); NEUTROPHILS # (AUTO) 4.4 (2.1-6.9); NEUTROPHILS % 69.6 % (38.7-80.0); PLATELET COUNT 143 x10e3/uL (140-360); RED BLOOD COUNT 3.27 x10e6/uL (4.3-5.7); RED CELL DISTRIBUTION WIDTH 20.6 % (11.7-14.4); WHITE BLOOD COUNT 6.36 x10e3/uL (4.8-10.8)
[2024-09-04 07:32] LABS: ALBUMIN 4.2 g/dL (3.5-5.0); ANION GAP 21.7 mmol/L (8-16); BILIRUBIN,TOTAL 4.2 mg/dL (0.2-1.2); CALCIUM 9.2 mg/dL (8.4-10.2); CREATININE, SERUM 4.13 mg/dL (0.72-1.25); POTASSIUM 3.7 mmol/L (3.5-5.1); TOTAL PROTEIN 6.3 g/dL (6.5-8.1)
[2024-09-04 10:30] LABS: ABG HCO3 17 mmol/L (22-26); ABG PCO2 32 mmHg (35-45); ABG PH 7.33 (7.35-7.45); ABG PO2 132 mmHg (80-105); ABG TCO2 18
[2024-09-05] VITALS (26 sets, daily range): BP systolic 85–135; BP diastolic 59–86; PULSE 80–135; RESP 15–35; TEMP 97.5–97.9; O2SAT 88–100
[2024-09-05 06:38] LABS: BASOPHILS # (AUTO) 0.1 (0.0-0.1); BASOPHILS % 1.3 % (0.0-1.0); EOSINOPHILS # (AUTO) 0.4 (0.0-0.4); HEMATOCRIT 29.6 % (38.2-49.6); HEMOGLOBIN 9.7 g/dL (14.0-18.0); LYMPHOCYTES # (AUTO) 0.8 (1.0-3.2); LYMPHOCYTES % 10.7 % (18.0-39.1); MEAN CORPUSCULAR HEMOGLOBIN 31.3 pg (28-32); MEAN CORPUSCULAR HGB CONC 32.8 g/dL (31-35); MEAN CORPUSCULAR VOLUME 95.5 fL (81-99); MONOCYTES # (AUTO) 0.8 (0.2-0.8); MONOCYTES % 11.5 % (4.4-11.3); NEUTROPHILS # (AUTO) 4.9 (2.1-6.9); NEUTROPHILS % 70.4 % (38.7-80.0); PLATELET COUNT 107 x10e3/uL (140-360); RED CELL DISTRIBUTION WIDTH 20.6 % (11.7-14.4); WHITE BLOOD COUNT 6.98 x10e3/uL (4.8-10.8)
[2024-09-05 06:57] LABS: ALBUMIN 4.5 g/dL (3.5-5.0); ANION GAP 22.3 mmol/L (8-16); CALCIUM 9.3 mg/dL (8.4-10.2); CREATININE, SERUM 4.82 mg/dL (0.72-1.25); TOTAL PROTEIN 6.8 g/dL (6.5-8.1)
[2024-09-05 06:59] LABS: POTASSIUM 3.3 mmol/L (3.5-5.1)
[2024-09-05] MEDS: ALBUMIN 25% 12.5GM 0.25 GM/ML BTL IV PRN (17:38)
[2024-09-05] MEDS: MELATONIN 3 MG TAB PO SCH (21:11)
[2024-09-06] VITALS (21 sets, daily range): BP systolic 100–118; BP diastolic 59–90; PULSE 80–97; RESP 12–24; TEMP 96.9–97.8; O2SAT 94–100
[2024-09-06 07:05] LABS: ANION GAP 20.7 mmol/L (8-16); CALCIUM 9.2 mg/dL (8.4-10.2); CREATININE, SERUM 3.66 mg/dL (0.72-1.25); POTASSIUM 3.7 mmol/L (3.5-5.1)
[2024-09-06] MEDS: RIFAXIMIN 550 MG TABLET PO SCH (10:51)
[2024-09-06 15:28] LABS: INR 2.15; PROTHROMBIN TIME 25.6 seconds (11.9-14.5)
[2024-09-07] VITALS (42 sets, daily range): BP systolic 76–110; BP diastolic 47–74; PULSE 42–105; RESP 15–26; TEMP 97.5–98; O2SAT 96–100
[2024-09-07 06:19] LABS: BASOPHILS # (AUTO) 0.1 (0.0-0.1); BASOPHILS % 0.6 % (0.0-1.0); EOSINOPHILS # (AUTO) 0.3 (0.0-0.4); EOSINOPHILS % 3.9 % (0.0-6.0); HEMATOCRIT 26.9 % (38.2-49.6); HEMOGLOBIN 8.7 g/dL (14.0-18.0); LYMPHOCYTES # (AUTO) 0.8 (1.0-3.2); LYMPHOCYTES % 8.7 % (18.0-39.1); MEAN CORPUSCULAR HEMOGLOBIN 31.1 pg (28-32); MEAN CORPUSCULAR HGB CONC 32.3 g/dL (31-35); MEAN CORPUSCULAR VOLUME 96.1 fL (81-99); MONOCYTES # (AUTO) 0.7 (0.2-0.8); MONOCYTES % 8.3 % (4.4-11.3); NEUTROPHILS # (AUTO) 6.9 (2.1-6.9); PLATELET COUNT 76 x10e3/uL (140-360); RED CELL DISTRIBUTION WIDTH 21.4 % (11.7-14.4); WHITE BLOOD COUNT 8.81 x10e3/uL (4.8-10.8)
[2024-09-07 06:57] LABS: ALBUMIN 4.3 g/dL (3.5-5.0); ALBUMIN/GLOBULIN RATIO 2.3 (0.8-2.0); ANION GAP 22.5 mmol/L (8-16); BILIRUBIN,TOTAL 5.3 mg/dL (0.2-1.2); CALCIUM 9.4 mg/dL (8.4-10.2); CREATININE, SERUM 4.34 mg/dL (0.72-1.25); POTASSIUM 3.5 mmol/L (3.5-5.1); TOTAL PROTEIN 6.2 g/dL (6.5-8.1)
[2024-09-08] VITALS (24 sets, daily range): BP systolic 80–178; BP diastolic 51–144; PULSE 79–94; RESP 12–26; TEMP 97–98.1; O2SAT 97–100
[2024-09-08 07:07] LABS: BASOPHILS # (AUTO) 0.1 (0.0-0.1); BASOPHILS % 1.1 % (0.0-1.0); EOSINOPHILS # (AUTO) 0.4 (0.0-0.4); EOSINOPHILS % 4.3 % (0.0-6.0); HEMATOCRIT 27.3 % (38.2-49.6); LYMPHOCYTES % 12.1 % (18.0-39.1); MEAN CORPUSCULAR VOLUME 97.2 fL (81-99); MONOCYTES # (AUTO) 0.8 (0.2-0.8); MONOCYTES % 9.5 % (4.4-11.3); NEUTROPHILS # (AUTO) 6.1 (2.1-6.9); NEUTROPHILS % 72.5 % (38.7-80.0); PLATELET COUNT 68 x10e3/uL (140-360); RED BLOOD COUNT 2.81 x10e6/uL (4.3-5.7); RED CELL DISTRIBUTION WIDTH 22.1 % (11.7-14.4); WHITE BLOOD COUNT 8.42 x10e3/uL (4.8-10.8)
[2024-09-08 07:51] LABS: ALBUMIN 4.6 g/dL (3.5-5.0); ALBUMIN/GLOBULIN RATIO 2.6 (0.8-2.0); ANION GAP 21.5 mmol/L (8-16); BILIRUBIN,TOTAL 6.3 mg/dL (0.2-1.2); CALCIUM 9.5 mg/dL (8.4-10.2); CREATININE, SERUM 3.42 mg/dL (0.72-1.25); MAGNESIUM 1.9 MG/DL (1.3-2.1); POTASSIUM 3.5 mmol/L (3.5-5.1); TOTAL PROTEIN 6.4 g/dL (6.5-8.1)
[2024-09-08] MEDS: AMIODARONE HCL 200 MG TAB PO SCH (09:06)
[2024-09-08] MEDS: MELATONIN 3 MG TAB PO PRN (20:09)
[2024-09-08] MEDS: ACETAMINOPHEN 325 MG TAB PO PRN (20:09)
[2024-09-09] VITALS (14 sets, daily range): BP systolic 74–112; BP diastolic 52–64; PULSE 79–99; RESP 16–23; TEMP 97.9–98.6; O2SAT 92–100
[2024-09-09 06:54] LABS: BASOPHILS # (AUTO) 0.1 (0.0-0.1); BASOPHILS % 0.9 % (0.0-1.0); EOSINOPHILS # (AUTO) 0.5 (0.0-0.4); EOSINOPHILS % 7.1 % (0.0-6.0); HEMATOCRIT 27.6 % (38.2-49.6); HEMOGLOBIN 8.6 g/dL (14.0-18.0); LYMPHOCYTES # (AUTO) 1.1 (1.0-3.2); LYMPHOCYTES % 16.5 % (18.0-39.1); MEAN CORPUSCULAR HEMOGLOBIN 31.2 pg (28-32); MEAN CORPUSCULAR HGB CONC 31.2 g/dL (31-35); MONOCYTES # (AUTO) 0.8 (0.2-0.8); MONOCYTES % 11.8 % (4.4-11.3); NEUTROPHILS % 63.2 % (38.7-80.0); PLATELET COUNT 72 x10e3/uL (140-360); RED BLOOD COUNT 2.76 x10e6/uL (4.3-5.7); RED CELL DISTRIBUTION WIDTH 22.6 % (11.7-14.4); WHITE BLOOD COUNT 6.35 x10e3/uL (4.8-10.8)
[2024-09-09 07:04] LABS: ALBUMIN 4.3 g/dL (3.5-5.0); ALBUMIN/GLOBULIN RATIO 2.2 (0.8-2.0); ANION GAP 19.4 mmol/L (8-16); BILIRUBIN,TOTAL 6.2 mg/dL (0.2-1.2); CALCIUM 9.3 mg/dL (8.4-10.2); CREATININE, SERUM 4.17 mg/dL (0.72-1.25); TOTAL PROTEIN 6.3 g/dL (6.5-8.1)
[2024-09-09 07:13] LABS: POTASSIUM 3.4 mmol/L (3.5-5.1)
[2024-09-09] MEDS ORDERED: ALBUMIN 25% 12.5GM 0.25 GM/ML BTL IV PRN (10:30)
[2024-09-09] MEDS ORDERED: SODIUM CHLORIDE 0.9% 1000ML 2,000 ML IV PRN (10:30)
[2024-09-09] MEDS ORDERED: HEPARIN SOD (PORCINE) 1000 UNIT/ML SDV IV PRN (10:30)
[2024-09-09] MEDS ORDERED: EPOETIN ALFA-EPBX 10,000 UNIT/ML VIAL SC SCH (14:00)
[2024-09-10] VITALS (11 sets, daily range): BP systolic 90–112; BP diastolic 54–66; PULSE 82–103; RESP 14–23; TEMP 97.5–98; O2SAT 98–100
[2024-09-10 07:19] LABS: ANION GAP 20.8 mmol/L (8-16); CALCIUM 10.2 mg/dL (8.4-10.2); CREATININE, SERUM 3.02 mg/dL (0.72-1.25); POTASSIUM 3.8 mmol/L (3.5-5.1)
[2024-09-10 12:41] LABS: BILIRUBIN,DIRECT 4.7 mg/dL (0.0-0.5); BILIRUBIN,TOTAL 7.1 mg/dL (0.2-1.2); TOTAL PROTEIN 6.9 g/dL (6.5-8.1)
[2024-09-11] VITALS (29 sets, daily range): BP systolic 74–107; BP diastolic 49–81; PULSE 60–104; RESP 14–27; TEMP 98–98.3; O2SAT 95–100
[2024-09-11 06:38] LABS: BASOPHILS # (AUTO) 0.1 (0.0-0.1); BASOPHILS % 1.1 % (0.0-1.0); EOSINOPHILS # (AUTO) 0.3 (0.0-0.4); EOSINOPHILS % 4.5 % (0.0-6.0); HEMATOCRIT 25.6 % (38.2-49.6); HEMOGLOBIN 8.1 g/dL (14.0-18.0); LYMPHOCYTES # (AUTO) 1.2 (1.0-3.2); LYMPHOCYTES % 19.1 % (18.0-39.1); MEAN CORPUSCULAR HEMOGLOBIN 31.4 pg (28-32); MEAN CORPUSCULAR HGB CONC 31.6 g/dL (31-35); MEAN CORPUSCULAR VOLUME 99.2 fL (81-99); MONOCYTES # (AUTO) 0.9 (0.2-0.8); MONOCYTES % 13.3 % (4.4-11.3); NEUTROPHILS # (AUTO) 3.9 (2.1-6.9); NEUTROPHILS % 61.5 % (38.7-80.0); PLATELET COUNT 61 x10e3/uL (140-360); RED BLOOD COUNT 2.58 x10e6/uL (4.3-5.7); WHITE BLOOD COUNT 6.38 x10e3/uL (4.8-10.8)
[2024-09-11 06:57] LABS: ALBUMIN 5.2 g/dL (3.5-5.0); ALBUMIN/GLOBULIN RATIO 2.7 (0.8-2.0); BILIRUBIN,TOTAL 6.8 mg/dL (0.2-1.2); CALCIUM 10.3 mg/dL (8.4-10.2); CREATININE, SERUM 3.96 mg/dL (0.72-1.25); TOTAL PROTEIN 7.1 g/dL (6.5-8.1)
[2024-09-11 10:51] LABS: INR 2.08
[2024-09-11] MEDS: EPOETIN ALFA-EPBX 10,000 UNIT/ML VIAL SC SCH (12:23)
[2024-09-11] MEDS: MIDODRINE HCL 5 MG TABLET PO SCH (16:45)
[2024-09-12] VITALS (29 sets, daily range): BP systolic 85–108; BP diastolic 43–72; PULSE 76–100; RESP 13–33; TEMP 96–98.2; O2SAT 89–100
[2024-09-12 06:57] LABS: BASOPHILS # (AUTO) 0.1 (0.0-0.1); EOSINOPHILS # (AUTO) 0.2 (0.0-0.4); EOSINOPHILS % 3.4 % (0.0-6.0); HEMATOCRIT 23.5 % (38.2-49.6); LYMPHOCYTES # (AUTO) 1.1 (1.0-3.2); LYMPHOCYTES % 17.9 % (18.0-39.1); MEAN CORPUSCULAR HEMOGLOBIN 31.8 pg (28-32); MEAN CORPUSCULAR HGB CONC 32.3 g/dL (31-35); MEAN CORPUSCULAR VOLUME 98.3 fL (81-99); MONOCYTES # (AUTO) 0.8 (0.2-0.8); MONOCYTES % 13.2 % (4.4-11.3); NEUTROPHILS # (AUTO) 3.8 (2.1-6.9); PLATELET COUNT 57 x10e3/uL (140-360); RED BLOOD COUNT 2.39 x10e6/uL (4.3-5.7); RED CELL DISTRIBUTION WIDTH 24.7 % (11.7-14.4); WHITE BLOOD COUNT 5.93 x10e3/uL (4.8-10.8)
[2024-09-12 07:02] LABS: HEMOGLOBIN 7.6 g/dL (14.0-18.0)
[2024-09-12 07:40] LABS: ALBUMIN/GLOBULIN RATIO 2.9 (0.8-2.0); ANION GAP 24.1 mmol/L (8-16); BILIRUBIN,TOTAL 8.1 mg/dL (0.2-1.2); CREATININE, SERUM 4.7 mg/dL (0.72-1.25); POTASSIUM 4.1 mmol/L (3.5-5.1); TOTAL PROTEIN 6.7 g/dL (6.5-8.1)
[2024-09-12] MEDS ORDERED: MIDAZOLAM HCL 2 MG/2 ML VIAL ONE (09:34)
[2024-09-12] MEDS ORDERED: FENTANYL CITRATE/PF 100MCG/2 ML INJ ONE (09:34)
[2024-09-12] MEDS ORDERED: HEPARIN SOD (PORCINE) 1000 UNIT/ML SDV ONE (09:35)
[2024-09-12] MEDS ORDERED: SODIUM CHLORIDE 0.9% 250ML 250 ML ONE (09:35)
[2024-09-12 09:37] LABS: ANISOCYTOSIS MODERATE; EOSINOPHILS % (MANUAL) 7 % (0-7); LYMPHOCYTES % (MANUAL) 14 % (19-48); MONOCYTES % (MANUAL) 8 % (3.4-9.0); NEUTROPHILS % (MANUAL) 71 % (40-74); PLATELET ESTIMATE MARKEDLY DECREASED; PLATELET MORPHOLOGY COMMENT NORMAL; RBC MORPHOLOGY COMMENT ABNORMAL
[2024-09-12 09:38] LABS: OVALOCYTES FEW
[2024-09-12] MEDS ORDERED: SODIUM CHLORIDE 0.9% 500ML 500 ML ONE (10:15)
[2024-09-13] VITALS (12 sets, daily range): BP systolic 85–100; BP diastolic 32–62; PULSE 78–98; RESP 18–26; TEMP 96.7; O2SAT 94–100
[2024-09-13] MEDS: ACETAMINOPHEN 1000 MG/100 ML IV ONE (07:56)
[2024-09-13] MEDS ORDERED: EPOETIN ALFA-EPBX 10,000 UNIT/ML VIAL SC SCH (13:30)
[2024-09-13] MEDS: EPOETIN ALFA-EPBX 10,000 UNIT/ML VIAL SC SCH (14:15)
== END 2024-09-13 14:39 | DRG 871 ==
LOC: ER 16:58 → ERHOLD 17:49 → ICU 21:00 → MED/SURG3 09-06 21:33 → IMCU 09-07 08:07 → ICU 09-07 11:13
PROVIDERS: ADMIT Family Medicine Adult Medicine; ATTEND Internal Medicine
PROC: 06HY33Z Insertion of Infusion Device into Lower Vein, Percutaneous Approach (ICD-10-PCS; principal; 2024-08-28)
PROC: 3E0333Z Introduction of Anti-inflammatory into Peripheral Vein, Percutaneous Approach (ICD-10-PCS; 2024-08-28)
PROC: 3E043XZ Introduction of Vasopressor into Central Vein, Percutaneous Approach (ICD-10-PCS; 2024-08-29)
PROC: 4A133R1 Monitoring of Arterial Saturation, Peripheral, Percutaneous Approach (ICD-10-PCS; 2024-08-30)
PROC: 0W9G3ZZ Drainage of Peritoneal Cavity, Percutaneous Approach (ICD-10-PCS; 2024-08-30)
PROC: 02HV33Z Insertion of Infusion Device into Superior Vena Cava, Percutaneous Approach (ICD-10-PCS; 2024-08-31)
PROC: 02HV33Z Insertion of Infusion Device into Superior Vena Cava, Percutaneous Approach (ICD-10-PCS; 2024-09-04)
PROC: 0W9G3ZZ Drainage of Peritoneal Cavity, Percutaneous Approach (ICD-10-PCS; 2024-09-06)
PROC: 5A1D70Z Performance of Urinary Filtration, Intermittent, Less than 6 Hours Per Day (ICD-10-PCS; 2024-09-10)
PROC: 0W9G3ZZ Drainage of Peritoneal Cavity, Percutaneous Approach (ICD-10-PCS; 2024-09-11)
PROC: 02PYX3Z Removal of Infusion Device from Great Vessel, External Approach (ICD-10-PCS; 2024-09-12)
PROC: 02HV33Z Insertion of Infusion Device into Superior Vena Cava, Percutaneous Approach (ICD-10-PCS; 2024-09-12)
PROC: 0JH63XZ Insertion of Tunneled Vascular Access Device into Chest Subcutaneous Tissue and Fascia, Percutaneous Approach (ICD-10-PCS; 2024-09-12)
DX: A41.9 Sepsis, unspecified organism (principal); G92.8 Other toxic encephalopathy; K72.00 Acute and subacute hepatic failure without coma; R57.0 Cardiogenic shock; K76.7 Hepatorenal syndrome; N17.0 Acute kidney failure with tubular necrosis; R65.21 Severe sepsis with septic shock; I13.0 Hypertensive heart and chronic kidney disease with heart failure and stage 1 through stage 4 chronic kidney disease, or unspecified chronic kidney disease; I50.23 Acute on chronic systolic (congestive) heart failure; I21.A1 Myocardial infarction type 2; E87.20 Acidosis, unspecified; R18.8 Other ascites; D61.818 Other pancytopenia; N18.4 Chronic kidney disease, stage 4 (severe); K76.6 Portal hypertension; E87.1 Hypo-osmolality and hyponatremia; B19.10 Unspecified viral hepatitis B without hepatic coma; E11.22 Type 2 diabetes mellitus with diabetic chronic kidney disease; K76.82 Hepatic encephalopathy; R34 Anuria and oliguria; E87.5 Hyperkalemia; Z66 Do not resuscitate; K74.69 Other cirrhosis of liver; I25.5 Ischemic cardiomyopathy; R53.81 Other malaise; E87.70 Fluid overload, unspecified; I48.0 Paroxysmal atrial fibrillation; K21.9 Gastro-esophageal reflux disease without esophagitis; E87.6 Hypokalemia; R00.1 Bradycardia, unspecified; I25.10 Atherosclerotic heart disease of native coronary artery without angina pectoris; E78.5 Hyperlipidemia, unspecified; R79.89 Other specified abnormal findings of blood chemistry; Z79.01 Long term (current) use of anticoagulants; Z79.82 Long term (current) use of aspirin; Z79.4 Long term (current) use of insulin; I25.2 Old myocardial infarction; Z95.1 Presence of aortocoronary bypass graft; Z95.810 Presence of automatic (implantable) cardiac defibrillator; Z90.79 Acquired absence of other genital organ(s)
CPT/HCPCS: 36415; 36555; 36558; 36600; 49083; 51700; 71045; 74470; 76700; 76937; 77001; 80048; 80053; 80076; 81001; 81015; 82040; 82140; 82550; 82805; 82948; 83605; 83690; 83735; 83880; 84100; 84132; 84157; 84300; 84443; 84484; 85025; 85610; 85730; 86704; 86706; 87040; 87070; 87086; 87205; 88112; 88305; 89051; 93005; 93306; 93971; 94799; 96372; 99152; 99252; 99285; C1729; C1892; J0690; J0696; J1308; J1644; J1938; J2150; J2250; J2270; J2353; J2354; J2405; J2543; J3411; J7030; J7040; J7050; J7799; P9047